=== PATIENT | female | born 1975 | race Caucasian/White ===

== ENCOUNTER 2018-08-31 17:32 | Inpatient (IN) | payer MEDICAID, OTHER ==
[~2018-08-31] VITALS: Ht 165.1 cm; Wt 85.8 kg
[2018-08-31] MEDS ORDERED: SODIUM CHLORIDE 0.9% 1,000 ML IV ONE (23:16)
[2018-08-31] MEDS ORDERED: ONDANSETRON HCL 4MG/2ML INJ IV STA (23:16)
[2018-08-31] MEDS ORDERED: KETOROLAC 30MG/ML VIAL IV STA (23:16)
[2018-08-31 23:42] LABS: HEMOGLOBIN. 12.9 g/dL (12.0-16.0); MEAN CORPUSCULAR HEMOGLOBIN 29.9 pg (28.0-32.0); MEAN CORPUSCULAR VOLUME 90.5 fL (81.0-99.0); MEAN PLATELET VOLUME 9.6 fl (7.4-10.4); PLATELET 354 x1000/uL (130-400); RED BLOOD CELL COUNT 4.31 mill/uL (4.2-5.4); RED CELL DISTRIBUTION WIDTH 13.4 % (11.6-14.6)
[2018-08-31 23:48] LABS: CHLORIDE 102 mEq/L (98-107)
[2018-08-31 23:50] LABS: CLARITY URINE TURBID (CLEAR); COLOR URINE DARK YELLOW (YELLOW); KETONES URINE 1+ (NEGATIVE); LEUKOCYTE ESTERASE URINE 2+ (NEGATIVE); NITRITE URINE POSITIVE (NEGATIVE); OCCULT BLOOD URINE NEGATIVE (NEGATIVE); PH URINE 5.5 (4.5-8.0); PROTEIN URINE 2+ (NEGATIVE); SPECIFIC GRAVITY URINE 1.042 (1.005-1.030); UROBILINOGEN URINE 0.2 E.U./dL (0.2-1.0)
[2018-09-01] MEDS ORDERED: CEFTRIAXONE 1 G PREMIX 50 ML IV ONE (01:15)
[2018-09-01] MEDS: MORPHINE SULFATE 4 MG/ML CPJ (NOT FOR IM USE) IV PRN ×5 (02:25→21:24)
[2018-09-01] MEDS ORDERED: IOHEXOL-300 100 ML BOTTLE ONE (03:53)
[2018-09-01 04:41] LABS: PLATELET ESTIMATE NORMAL
[2018-09-01 16:37] VITALS: BP 112/82
[2018-09-01 17:12] VITALS: BP 112/82
[2018-09-01] MEDS ORDERED: PIPERACILLIN/TAZOBACTAM 3.375GM/50ML PREMIX IV SCH (18:00)
[2018-09-01 20:00] VITALS: BP 113/66
[2018-09-01] MEDS: DEXT 5%/0.45% NACL KCL 20MEQ/L 1,000 ML IV SCH (21:17)
[2018-09-01] MEDS: PIPERACILLIN/TAZ 3.375G PREMIX 50 ML IV SCH (21:24)
[2018-09-02] VITALS: BP 108/62
[2018-09-02] MEDS: MORPHINE SULFATE 4 MG/ML CPJ (NOT FOR IM USE) IV PRN ×5 (03:33→22:44)
[2018-09-02 04:00] VITALS: BP 115/71
[2018-09-02] MEDS: PIPERACILLIN/TAZ 3.375G PREMIX 50 ML IV SCH ×4 (04:28→21:27)
[2018-09-02 07:30] VITALS: BP 116/77
[2018-09-02 07:44] LABS: HEMATOCRIT. 37.2 % (36.0-48.0); HEMOGLOBIN. 12.3 g/dL (12.0-16.0); MEAN CORPUSCULAR HEMOGLOBIN 29.9 pg (28.0-32.0); MEAN CORPUSCULAR VOLUME 90.2 fL (81.0-99.0); MEAN PLATELET VOLUME 9.6 fl (7.4-10.4); PLATELET 299 x1000/uL (130-400); RED BLOOD CELL COUNT 4.12 mill/uL (4.2-5.4); RED CELL DISTRIBUTION WIDTH 13.7 % (11.6-14.6)
[2018-09-02] MEDS: PANTOPRAZOLE SODIUM 40 MG/VIAL IV SCH (08:46)
[2018-09-02 08:53] LABS: PLATELET ESTIMATE NORMAL
[2018-09-02] MEDS: DEXT 5%/0.45% NACL KCL 20MEQ/L 1,000 ML IV SCH ×2 (10:05→21:00)
[2018-09-02 11:20] LABS: CHLORIDE 103 mEq/L (98-107)
[2018-09-02 11:29] LABS: AMYLASE 561 IU/L (25-115)
[2018-09-02] MEDS ORDERED: ACETAMINOPHEN 325MG TABLET PO PRN (11:30)
[2018-09-02 12:00] VITALS: BP 145/59
[2018-09-02] MEDS: ONDANSETRON HCL 4MG/2ML INJ IV PRN ×2 (12:31→22:44)
[2018-09-02] MEDS ORDERED: POTASSIUM CHLORIDE INJ 40 MEQ in DEXT 5% WATER 250 ML IV ONE (13:00)
[2018-09-02 16:00] VITALS: BP 110/64
[2018-09-02 20:00] VITALS: BP 110/69
[2018-09-03] VITALS: BP 120/78
[2018-09-03] MEDS: MORPHINE SULFATE 4 MG/ML CPJ (NOT FOR IM USE) IV PRN ×4 (02:42→16:01)
[2018-09-03 04:00] VITALS: BP 121/70
[2018-09-03] MEDS: PIPERACILLIN/TAZ 3.375G PREMIX 50 ML IV SCH ×4 (04:48→21:24)
[2018-09-03 05:54] LABS: HEMATOCRIT. 33.6 % (36.0-48.0); HEMOGLOBIN. 11.1 g/dL (12.0-16.0); MEAN CORPUSCULAR HEMOGLOBIN 29.9 pg (28.0-32.0); MEAN CORPUSCULAR VOLUME 90.2 fL (81.0-99.0); MEAN PLATELET VOLUME 10.1 fl (7.4-10.4); PLATELET 257 x1000/uL (130-400); RED BLOOD CELL COUNT 3.72 mill/uL (4.2-5.4); RED CELL DISTRIBUTION WIDTH 13.8 % (11.6-14.6)
[2018-09-03 06:27] LABS: CHLORIDE 99 mEq/L (98-107)
[2018-09-03 07:10] LABS: AMYLASE 212 IU/L (25-115)
[2018-09-03 08:20] VITALS: BP 120/76
[2018-09-03] MEDS: PANTOPRAZOLE SODIUM 40 MG/VIAL IV SCH (09:05)
[2018-09-03] MEDS: ONDANSETRON HCL 4MG/2ML INJ IV PRN (09:20)
[2018-09-03] MEDS ORDERED: POTASSIUM CHLORIDE 20MEQ TABLET SR PO NR (10:30)
[2018-09-03 12:00] VITALS: BP 117/81
[2018-09-03 16:19] VITALS: BP 128/74
[2018-09-03] MEDS: HYDROMORPHONE HCL/PF 2MG/ML CPJ IV PRN (19:59)
[2018-09-03 20:00] VITALS: BP 122/66
[2018-09-03] MEDS: DEXT 5%/0.45% NACL KCL 20MEQ/L 1,000 ML IV SCH (21:00)
[2018-09-04] VITALS (7 sets, daily range): BP systolic 99–140; BP diastolic 52–88
[2018-09-04] MEDS: HYDROMORPHONE HCL/PF 2MG/ML CPJ IV PRN ×6 (00:45→21:23)
[2018-09-04] MEDS: DEXT 5%/0.45% NACL KCL 20MEQ/L 1,000 ML IV SCH ×2 (04:15→14:13)
[2018-09-04] MEDS: PIPERACILLIN/TAZ 3.375G PREMIX 50 ML IV SCH ×4 (04:15→21:23)
[2018-09-04 07:00] LABS: PLATELET ESTIMATE NORMAL
[2018-09-04 08:23] LABS: HEMATOCRIT. 31.6 % (36.0-48.0); HEMOGLOBIN. 10.2 g/dL (12.0-16.0); MEAN CORPUSCULAR HEMOGLOBIN 29.6 pg (28.0-32.0); MEAN CORPUSCULAR VOLUME 91.4 fL (81.0-99.0); MEAN PLATELET VOLUME 10.2 fl (7.4-10.4); PLATELET 251 x1000/uL (130-400); RED BLOOD CELL COUNT 3.46 mill/uL (4.2-5.4); RED CELL DISTRIBUTION WIDTH 13.7 % (11.6-14.6)
[2018-09-04 09:28] LABS: CHLORIDE 98 mEq/L (98-107)
[2018-09-04 09:44] LABS: AMYLASE 60 IU/L (25-115)
[2018-09-04] MEDS: PANTOPRAZOLE SODIUM 40 MG/VIAL IV SCH (10:05)
[2018-09-04 13:01] LABS: PLATELET ESTIMATE NORMAL
[2018-09-04] MEDS ORDERED: POTASSIUM CHLORIDE 20MEQ TABLET SR PO NR (15:50)
[2018-09-04] MEDS ORDERED: POTASSIUM CHLORIDE 20MEQ TABLET SR PO SCH (20:00)
[2018-09-05] VITALS: BP 113/74
[2018-09-05] MEDS: HYDROMORPHONE HCL/PF 2MG/ML CPJ IV PRN ×7 (01:16→21:21)
[2018-09-05 04:00] VITALS: BP 137/71
[2018-09-05] MEDS: PIPERACILLIN/TAZ 3.375G PREMIX 50 ML IV SCH ×3 (04:35→21:22)
[2018-09-05] MEDS: DEXT 5%/0.45% NACL KCL 20MEQ/L 1,000 ML IV SCH (04:51)
[2018-09-05 07:50] LABS: PARTIAL THROMBOPLASTIN TIME 32.7 sec (23.4-31.0); PROTHROMBIN TIME 10.1 sec (9.1-11.1)
[2018-09-05 07:54] LABS: HEMATOCRIT. 31.1 % (36.0-48.0); HEMOGLOBIN. 10.2 g/dL (12.0-16.0); MEAN CORPUSCULAR HEMOGLOBIN 29.7 pg (28.0-32.0); MEAN CORPUSCULAR VOLUME 90.8 fL (81.0-99.0); MEAN PLATELET VOLUME 9.3 fl (7.4-10.4); PLATELET 261 x1000/uL (130-400); RED BLOOD CELL COUNT 3.42 mill/uL (4.2-5.4); RED CELL DISTRIBUTION WIDTH 13.9 % (11.6-14.6)
[2018-09-05 08:00] VITALS: BP 118/79
[2018-09-05] MEDS: FAMOTIDINE 20MG/2ML VIAL IV SCH ×2 (10:07→21:20)
[2018-09-05 10:55] LABS: CHLORIDE 99 mEq/L (98-107)
[2018-09-05 12:00] VITALS: BP 110/70
[2018-09-05] MEDS ORDERED: POTASSIUM CHLORIDE INJ 40 MEQ in DEXT 5% WATER 250 ML IV NR (13:00)
[2018-09-05 13:51] LABS: PLATELET ESTIMATE NORMAL
[2018-09-05] MEDS ORDERED: SIMETHICONE 40 MG/0.6 ML 30ML ONE (14:29)
[2018-09-05] MEDS ORDERED: IOHEXOL-300 100 ML BOTTLE ONE (14:29)
[2018-09-05 16:00] VITALS: BP 115/70
[2018-09-05 20:00] VITALS: BP 125/81
[2018-09-06] VITALS: BP 117/75
[2018-09-06] MEDS: DEXT 5%/0.45% NACL KCL 20MEQ/L 1,000 ML IV SCH ×3 (00:06→21:00)
[2018-09-06] MEDS: HYDROMORPHONE HCL/PF 2MG/ML CPJ IV PRN ×3 (02:48→12:30)
[2018-09-06 04:00] VITALS: BP 109/63
[2018-09-06] MEDS: PIPERACILLIN/TAZ 3.375G PREMIX 50 ML IV SCH ×3 (04:53→21:35)
[2018-09-06 07:52] LABS: HEMATOCRIT. 28.9 % (36.0-48.0); HEMOGLOBIN. 9.5 g/dL (12.0-16.0); MEAN CORPUSCULAR HEMOGLOBIN 29.9 pg (28.0-32.0); MEAN CORPUSCULAR VOLUME 90.6 fL (81.0-99.0); MEAN PLATELET VOLUME 9.2 fl (7.4-10.4); PLATELET 289 x1000/uL (130-400); RED BLOOD CELL COUNT 3.19 mill/uL (4.2-5.4); RED CELL DISTRIBUTION WIDTH 13.8 % (11.6-14.6)
[2018-09-06 08:00] VITALS: BP 117/69
[2018-09-06] MEDS: FAMOTIDINE 20MG/2ML VIAL IV SCH ×2 (09:44→21:35)
[2018-09-06 12:00] VITALS: BP 124/81
[2018-09-06 12:41] LABS: CHLORIDE 97 mEq/L (98-107)
[2018-09-06] MEDS ORDERED: SIMETHICONE 40 MG/0.6 ML 30ML ONE (15:23)
[2018-09-06] MEDS ORDERED: IOHEXOL-300 100 ML BOTTLE ONE (15:23)
[2018-09-06 15:45] VITALS: BP 112/80
[2018-09-06] MEDS ORDERED: ROCURONIUM BROMIDE 10MG/ML VIAL 5ML IV ONE (15:49)
[2018-09-06] MEDS ORDERED: MIDAZOLAM HCL 2 MG/2 ML VIAL ONE (15:49)
[2018-09-06] MEDS ORDERED: FENTANYL CITRATE/PF 50MCG/ML 2ML VIAL ONE (15:49)
[2018-09-06] MEDS ORDERED: NEOSTIGMINE METHYLSULFATE 1MG/ML 10 ML VIAL ONE (17:14)
[2018-09-06] MEDS ORDERED: GLYCOPYRROLATE 0.2 MG/ML 2ML VIAL ONE (17:14)
[2018-09-06 17:57] LABS: PLATELET ESTIMATE NORMAL
[2018-09-06] MEDS ORDERED: ONDANSETRON HCL 4MG/2ML INJ IV PRN (18:15)
[2018-09-06] MEDS ORDERED: KETOROLAC 30MG/ML VIAL IV PRN (18:15)
[2018-09-06] MEDS ORDERED: ACETAMINOPHEN 500MG TABLET PO SCH (18:15)
[2018-09-06 20:00] VITALS: BP 114/66
[2018-09-07] VITALS: BP 100/64
[2018-09-07 04:00] VITALS: BP 105/60
[2018-09-07] MEDS: DEXT 5%/0.45% NACL KCL 20MEQ/L 1,000 ML IV SCH ×3 (04:54→23:33)
[2018-09-07] MEDS: PIPERACILLIN/TAZ 3.375G PREMIX 50 ML IV SCH ×4 (04:54→23:33)
[2018-09-07 07:30] VITALS: BP 112/69
[2018-09-07] MEDS: FAMOTIDINE 20MG/2ML VIAL IV SCH ×2 (09:13→21:00)
[2018-09-07 11:42] VITALS: BP 104/49
[2018-09-07 16:01] VITALS: BP 121/78
[2018-09-07] MEDS ORDERED: LIDOCAINE HCL 1% 20ML VIAL (Pyxis) INJ ONE ×2 (18:11→19:35)
[2018-09-07] MEDS ORDERED: SKIN ADHESIVE 0.7 GM EA TOP ONE (18:11)
[2018-09-07] MEDS ORDERED: BUPIVACAINE HCL/PF 0.5% (5MG/ML) 10ML ONE (18:11)
[2018-09-07 18:13] LABS: UCG SCREEN NEGATIVE
[2018-09-07] MEDS ORDERED: CEFOXITIN SODIUM 2 G in DEXT 5% WATER 100 ML IV NR (18:27)
[2018-09-07 18:42] LABS: HEMATOCRIT. 29.1 % (36.0-48.0); HEMOGLOBIN. 9.6 g/dL (12.0-16.0); MEAN CORPUSCULAR HEMOGLOBIN 29.8 pg (28.0-32.0); MEAN CORPUSCULAR VOLUME 90.4 fL (81.0-99.0); MEAN PLATELET VOLUME 9.2 fl (7.4-10.4); PLATELET 384 x1000/uL (130-400); RED BLOOD CELL COUNT 3.22 mill/uL (4.2-5.4); RED CELL DISTRIBUTION WIDTH 13.8 % (11.6-14.6)
[2018-09-07 18:57] LABS: PLATELET ESTIMATE NORMAL
[2018-09-07 19:00] LABS: CHLORIDE 103 mEq/L (98-107)
[2018-09-07] MEDS ORDERED: FENTANYL CITRATE/PF 50MCG/ML 2ML VIAL ONE (19:33)
[2018-09-07] MEDS ORDERED: MIDAZOLAM HCL 2 MG/2 ML VIAL ONE (19:34)
[2018-09-07] MEDS ORDERED: PROPOFOL 200MG/20ML VIAL IV ONE (19:34)
[2018-09-07] MEDS ORDERED: ROCURONIUM BROMIDE 10MG/ML VIAL 5ML IV ONE ×2 (19:36→20:31)
[2018-09-07] MEDS ORDERED: PHENYLEPHRINE HCL 10 MG/ML 1ML (IV VIAL) IV ONE (19:53)
[2018-09-07] MEDS ORDERED: GLYCOPYRROLATE 0.2 MG/ML 2ML VIAL ONE ×2 (19:57→21:16)
[2018-09-07] MEDS ORDERED: DEXAMETHASONE 4MG/ML 1ML VIAL ONE (20:38)
[2018-09-07] MEDS ORDERED: ONDANSETRON HCL 4MG/2ML INJ ONE (20:38)
[2018-09-07] MEDS ORDERED: NEOSTIGMINE METHYLSULFATE 1MG/ML 10 ML VIAL ONE (21:16)
[2018-09-07] MEDS ORDERED: SUCCINYLCHOLINE CHLORIDE 200MG/10ML IV ONE (21:36)
[2018-09-07] MEDS ORDERED: ESMOLOL HCL 10MG/ML 10ML VIAL IV ONE (21:38)
[2018-09-07] MEDS ORDERED: HYDROMORPHONE HCL/PF 2MG/ML CPJ IV PRN (21:52)
[2018-09-08] VITALS: BP 111/76
[2018-09-08 04:30] VITALS: BP 104/71
[2018-09-08] MEDS: PIPERACILLIN/TAZ 3.375G PREMIX 50 ML IV SCH ×2 (04:43→10:41)
[2018-09-08] MEDS: HYDROMORPHONE HCL/PF 2MG/ML CPJ IV PRN ×3 (04:55→12:29)
[2018-09-08 07:26] LABS: HEMATOCRIT. 27.7 % (36.0-48.0); HEMOGLOBIN. 9.1 g/dL (12.0-16.0); MEAN CORPUSCULAR HEMOGLOBIN 29.8 pg (28.0-32.0); MEAN CORPUSCULAR VOLUME 91.1 fL (81.0-99.0); MEAN PLATELET VOLUME 9.1 fl (7.4-10.4); PLATELET 405 x1000/uL (130-400); RED BLOOD CELL COUNT 3.04 mill/uL (4.2-5.4); RED CELL DISTRIBUTION WIDTH 14.2 % (11.6-14.6)
[2018-09-08 07:33] VITALS: BP 103/68
[2018-09-08] MEDS: DEXT 5%/0.45% NACL KCL 20MEQ/L 1,000 ML IV SCH ×2 (07:42→12:27)
[2018-09-08] MEDS: FAMOTIDINE 20MG/2ML VIAL IV SCH (07:43)
[2018-09-08 08:35] LABS: CHLORIDE 104 mEq/L (98-107)
[2018-09-08 09:33] VITALS: BP_SYST 107; BP_SYST 110; BP_DIAS 69; BP_DIAS 72
[2018-09-08 11:15] LABS: PLATELET ESTIMATE SLIGHTLY INCREASED
[2018-09-08 11:43] VITALS: BP 113/75
[2018-09-08 15:56] VITALS: BP 110/78
== END 2018-09-08 17:37 | disposition home or self-care (01) | DRG 710 ==
LOC: ER 17:32 → 8WST 09-01 01:11 → EDBEDREQ 09-01 01:14 → EDBEDREQTM 09-01 01:14 → ENRESERV 09-01 14:48
PROVIDERS: ADMIT Internal Medicine; ATTEND Internal Medicine
PROC: BF181ZZ Fluoroscopy of Pancreatic Ducts using Low Osmolar Contrast (ICD-10-PCS; principal; 2018-09-06)
PROC: 0FT44ZZ Resection of Gallbladder, Percutaneous Endoscopic Approach (ICD-10-PCS; 2018-09-07)
DX: A41.9 Sepsis, unspecified organism (principal); K85.10 Biliary acute pancreatitis without necrosis or infection; K80.70 Calculus of gallbladder and bile duct without cholecystitis without obstruction; K76.0 Fatty (change of) liver, not elsewhere classified; K83.8 Other specified diseases of biliary tract; N39.0 Urinary tract infection, site not specified; E87.6 Hypokalemia; E66.9 Obesity, unspecified; R74.0 Nonspecific elevation of levels of transaminase and lactic acid dehydrogenase [LDH]; Z68.31 Body mass index [BMI] 31.0-31.9, adult
CPT/HCPCS: 36415; 74177; 74181; 76705; 80048; 81025; 82150; 83605; 86850; 86900; 86920; 87077; 87186; 88304; 93970; 96365; 96366; 96375; 99285; C1726; C1769; C9113; J0330; J0694; J0696; J1100; J1170; J1885; J2250; J2270; J2370; J2405; J2543; J2704; J2710; J3010; J3480; J3490; J7030; J7040; J7050; J7060; Q9967